=== PATIENT | female | born 1970 | race Caucasian/White ===

== ENCOUNTER 2024-06-04 18:58 | Emergency (ER) | payer SELFPAY ==
[2024-06-04] MEDS ORDERED: Sodium Chloride 0.9% 10 ML Syringe FLUSH PRN (19:18)
[2024-06-04 19:53] LABS: BASOPHILS PERCENT AUTO 0.3 % (0.0-1.0); EOSINOPHILS ABSOLUTE AUTO 0.3 K/mm3 (0.0-0.4); EOSINOPHILS PERCENT AUTO 5.6 % (0.0-6.0); HEMATOCRIT 41.7 % (37.0-47.0); HEMOGLOBIN 13.6 gm/dl (12.0-16.0); IMMATURE GRAN ABSOLUTE AUTO 0.02 K/mm3 (0.00-0.05); IMMATURE GRAN PERCENT AUTO 0.3 % (0.0-0.4); LYMPHOCYTES ABSOLUTE AUTO 2.2 K/mm3 (1.0-4.8); LYMPHOCYTES PERCENT AUTO 38.9 % (24.0-44.0); MEAN CORPUSCULAR HEMOGLOBIN 27.6 pg (28.0-32.0); MEAN CORPUSCULAR HGB CONC 32.6 g/dl (32.0-36.0); MEAN CORPUSCULAR VOLUME 84.6 fl (83.0-99.0); MEAN PLATELET VOLUME 9.2 fl (9.4-12.3); MONOCYTES ABSOLUTE AUTO 0.5 K/mm3 (0.0-0.8); NEUTROPHILS ABSOLUTE AUTO 2.7 K/mm3 (1.8-7.7); NEUTROPHILS PERCENT AUTO 46.9 % (41.0-71.0); PLATELET COUNT,PLT 245 K/mm3 (150-400); RED BLOOD CELL COUNT 4.93 M/mm3 (4.10-5.30); WHITE BLOOD CELL COUNT,WBC 5.76 K/mm3 (3.9-11.3)
[2024-06-04 20:18] LABS: A/G RATIO 0.9 (1-2); ALBUMIN 3.4 g/dl (3.4-5.0); ANION GAP 10.9 (5-15); BILIRUBIN TOTAL 0.2 mg/dL (0.2-1.0); BUN/CREATININE RATIO 12.7 (14-18); CALCIUM 9.1 mg/dL (8.5-10.1); CREATININE 1.1 mg/dL (0.55-1.02); EST CRCL DRUG DOSING (CG) 57.52 mL/min; POTASSIUM,K 3.9 mEq/L (3.5-5.1)
[2024-06-04] MEDS: Haloperidol Lactate 5 MG/ML SDV IVPUSH ONE (20:51)
[2024-06-04] MEDS: diphenhydrAMINE 50 MG/ML SDV IVPUSH ONE (20:51)
[2024-06-04] MEDS: Sodium Chloride 0.9% 1,000 ML IV ONE (20:55)
== END 2024-06-04 22:12 | disposition home or self-care (01) ==
LOC: JD.ED 18:58
DX: R51.9 Headache, unspecified (principal); Z88.0 Allergy status to penicillin
CPT/HCPCS: 36415; 80053; 85025; 96361; 96374; 96375; 99284; J1200; J1630; J7030

== ENCOUNTER 2024-06-26 15:05 | Emergency (ER) | payer SELFPAY ==
[2024-06-26] MEDS: Acetaminophen 325 MG Tab PO ONE (15:56)
== END 2024-06-26 16:43 | disposition home or self-care (01) ==
LOC: JD.ED 15:05
DX: S93.402A Sprain of unspecified ligament of left ankle, initial encounter (principal); S96.912A Strain of unspecified muscle and tendon at ankle and foot level, left foot, initial encounter; F17.210 Nicotine dependence, cigarettes, uncomplicated; Z90.710 Acquired absence of both cervix and uterus; Z88.0 Allergy status to penicillin; Z88.6 Allergy status to analgesic agent; X58.XXXA Exposure to other specified factors, initial encounter
CPT/HCPCS: 73610; 73620; 99283; A9270